=== PATIENT | female | born 1990 | race Two or more races ===

== ENCOUNTER 2018-01-11 18:57 | Emergency (ER) | payer MEDICAID ==
[~2018-01-11] VITALS: Ht 162.6 cm; Wt 61.2 kg
[2018-01-11 19:20] VITALS: BP 107/67
--- NOTE | 2018-01-11 19:36 | Emergency Room Report ---
History of Present Illness General Chief Complaint: Skin Rash/Abscess Source: Patient Present Illness HPI 27-year-old female presents to the emergency department complaining of itchy rash generalized over her body that. Proximately 1 hour after eating fish and [place] yesterday afternoon. patient also reports that she is approximately 22 weeks . Pt. denies fevers, chills or swollen tender lymph nodes. Denies lesions/rashes elsewhere on the body. Denies new medications or body washes or creams. Denies swelling of the lips, tongue , throat or airway. Denies wheezing, or shortness of breath. Denies recent travel, recent illness or ill contacts. denies blisters, oral lesions, or sloughing of the skin Pt. denies pain. Pt. also requesting something for constipation. pt. states every time she takes her vitamins she becomes constipated. last BM today. denies abdominal pain, tenderness, cramping or vaginal d/c or vaginal bleeding. Allergies: Coded Allergies: No Known Allergies (Unverified , 01/11/18) Patient History Past Medical History: see triage record Past Surgical History: none Pertinent Family History: none Last Menstrual Period: 08/2017 Now: Yes Reviewed Nursing Documentation: PMH: Agreed; PSxH: Agreed Nursing Documentation-PMH Past Medical History: No Stated History Review of Systems All Other Systems: negative except mentioned in HPI Physical Exam Vital Signs Date Time Temp Pulse Resp B/P (MAP) Pulse Ox O2 Delivery O2 Flow Rate FiO2 01/11/18 19:06 97.9 89 12 107/67 98 Room Air Sp02 EP Interpretation: reviewed, normal General Appearance: no apparent distress, alert, GCS 15, non-toxic Head: normocephalic, atraumatic Eyes: bilateral eye normal inspection, bilateral eye PERRL ENT: hearing grossly normal, normal voice, other - no stridor Neck: full range of motion Respiratory: chest non-tender, lungs clear, normal breath sounds, no respiratory distress, no wheezing, speaking full sentences Cardiovascular #1: regular rate, rhythm Musculoskeletal: back normal, gait/station normal, normal range of motion, non- tender Neurologic: alert, oriented x3, responsive, motor strength/tone normal, sensory intact, speech normal, grossly normal Psychiatric: judgement/insight normal Skin: normal color, warm/dry, well hydrated, rash - generalized diffuse raised plaques, no blisters or vessicles, no crusting or sloughing of skin. thighs and UE's most prominently. some on the face and neck. Lymphatic: no adenopathy Medical Decision Making PA Attestation Dr. gomes is my supervising Physician whom patient management has been discussed with. Diagnostic Impression: Primary Impression: Urticaria ER Course 27-year-old female presents to the emergency department complaining of itchy rash generalized over her body that. Proximately 1 hour after eating fish and [place] yesterday afternoon. patient also reports that she is approximately 22 weeks . Pt. denies fevers, chills or swollen tender lymph nodes. Denies lesions/rashes elsewhere on the body. Denies new medications or body washes or creams. Denies swelling of the lips, tongue , throat or airway. Denies wheezing, or shortness of breath. Denies recent travel, recent illness or ill contacts. denies blisters, oral lesions, or sloughing of the skin Pt. denies pain. Pt. also requesting something for constipation. pt. states every time she takes her vitamins she becomes constipated. last BM today. denies abdominal pain, tenderness, cramping or vaginal d/c or vaginal bleeding. Ddx considered but are not limited to cellulitis, scabies, shingles, varicella, dermatitis, urticaria, eczema, tinea, viral exanthem, SJS, scombroid Vital signs: are WNL, pt. is afebrile H&PE are most consistent with urticaria without evidence to suspect angioedema, acute airway compromise/impending airway compromise or anaphylaxis ORDERS: none required at this time, the diagnosis is clinical ED INTERVENTIONS: 50 mg Benadryl PO DISCHARGE: At this time pt. is stable for d/c to home. Will provide printed patient care instructions, and any necessary prescriptions. Care plan and follow up instructions have been discussed with the patient prior to discharge. Last Vital Signs Date Time Temp Pulse Resp B/P (MAP) Pulse Ox O2 Delivery O2 Flow Rate FiO2 01/11/18 19:20 97.9 89 12 107/67 98 Room Air Disposition: HOME, SELF-CARE Condition: Stable Scripts Docusate Sodium* (COLACE*) 100 Mg Capsule 100 MG ORAL TWICE A DAY, #30 CAP Prov: Mayuri Delatorre 01/11/18 Diphenhydramine Hcl/Zinc Acet (BENADRYL ITCH STOPPING CRM) 28.3 Gm Cream..g. 1 APPLIC TP Q6HR, #28.3 GM Prov: Mayuri Delatorre 01/11/18 Diphenhydramine Hcl (BENADRYL ALLERGY) 25 Mg Tablet 50 MG PO Q6HR, #20 TAB Prov: Mayuri Delatorre 01/11/18 Referrals: [facility],REFERRING (PCP) Patient Instructions: Rash Additional Instructions: Take medications as directed. Follow up with a OBGYN within 3 days, even if your symptoms have resolved. Return sooner to ED if new symptoms occur, or current symptoms become worse. - Please note that this Emergency Department Report was dictated using [employer] rep technology software, occasionally this can lead to erroneous entry secondary to interpretation by the dictation equipment. Mayuri Delatorre Jan 11, 2018 19:36
[2018-01-11] MEDS ORDERED: BENADRYL ALLERG25 M1 PO (19:38)
[2018-01-11] MEDS ORDERED: COLACE100 MG ORAL (19:38)
[2018-01-11] MEDS ORDERED: BENADRYL ITCH28.3 GM TP (19:38)
[2018-01-11 19:47] VITALS: BP 107/67
== END 2018-01-11 19:45 | disposition home or self-care (01) ==
LOC: EMR 19:27
DX: O26.892 Other specified pregnancy related conditions, second trimester (principal); L50.0 Allergic urticaria; Z3A.22 22 weeks gestation of pregnancy
CPT/HCPCS: 99282

== ENCOUNTER 2018-05-31 19:51 | Emergency (ER) | payer MEDICAID ==
[~2018-05-31] VITALS: Ht 165.1 cm; Wt 68.0 kg
[~2018-05-31 19:51] MED LIST: BENADRYL ALLERG25 M1 PO; BENADRYL ITCH28.3 GM TP; COLACE100 MG ORAL
--- NOTE | 2018-05-31 20:12 | NUR ---
ED Nurse Note: Martine walked into ED c/o flu like symptoms, states that shes been experiencing a cold now for the past 10 days, at time of triage, patients temp was 98.8. patient is actively coughing however with no sputum. patient is alert and oriented x4, ambulatory with a steady gait, VSS
[2018-05-31 20:15] VITALS: BP 142/85
[2018-05-31 21:43] LABS: BASOPHILS % (AUTO) 0.4 % (0.0-2.0); EOSINOPHILS % (AUTO) 0.7 % (0.0-3.0); HEMATOCRIT 27.8 % (37.0-47.0); HEMOGLOBIN 8.8 G/DL (12.0-16.0); LYMPHOCYTES % (AUTO) 15.3 % (20.0-45.0); MEAN CORPUSCULAR VOLUME 80 FL (80-99); MONOCYTES % (AUTO) 5.8 % (1.0-10.0); NEUTROPHILS % (AUTO) 77.7 % (45.0-75.0); PLATELET COUNT 241 K/UL (150-450); RED BLOOD COUNT 3.49 M/UL (4.20-5.40); RED CELL DISTRIBUTION WIDTH 13.5 % (11.6-14.8); WHITE BLOOD COUNT 14.3 K/UL (4.8-10.8)
[2018-05-31 21:55] LABS: ANION GAP 9 mmol/L (5-15); BLOOD UREA NITROGEN 13 mg/dL (7-18); CALCIUM 8.6 MG/DL (8.5-10.1); CARBON DIOXIDE 24 MMOL/L (21-32); CHLORIDE 107 MMOL/L (98-107); CREATININE 0.8 MG/DL (0.55-1.30); POTASSIUM 4.1 MMOL/L (3.5-5.1); SODIUM 140 MMOL/L (136-145)
[2018-05-31 22:00] LABS: ALANINE AMINOTRANSFERASE 37 U/L (12-78); ALBUMIN 2.3 G/DL (3.4-5.0); ALBUMIN/GLOBULIN RATIO 0.5 (1.0-2.7); ALKALINE PHOSPHATASE 152 U/L (46-116); ASPARTATE AMINO TRANSFERASE 39 U/L (15-37); BILIRUBIN,TOTAL 0.3 MG/DL (0.2-1.0)
--- NOTE | 2018-05-31 22:06 | Emergency Room Report ---
History of Present Illness General Chief Complaint: Flu Like Symptoms Source: Patient Present Illness HPI The patient states that she delivered by vaginal delivery yesterday. She states for the past 3 weeks she has had a persistent cough. She has had some light vaginal bleeding. However she states it has not been heavy. She denies abdominal pain. She has had swollen legs it. She denies headache. She denies shortness of breath. She has no other complaints. Allergies: Coded Allergies: No Known Allergies (Unverified , 01/11/18) Patient History Past Medical History: none Social History: Denies: smoking, alcohol use, drug use Last Menstrual Period: UNK Now: No Reviewed Nursing Documentation: PMH: Agreed; PSxH: Agreed Nursing Documentation-PMH Past Medical History: No Stated History Review of Systems All Other Systems: negative except mentioned in HPI Physical Exam Vital Signs Date Time Temp Pulse Resp B/P (MAP) Pulse Ox O2 Delivery O2 Flow Rate FiO2 05/31/18 20:12 98.8 73 18 147/88 98 Room Air Sp02 EP Interpretation: reviewed, normal General Appearance: no apparent distress, alert, GCS 15, non-toxic Head: normocephalic, atraumatic Eyes: bilateral eye PERRL, bilateral eye other - pale conjunctiva ENT: hearing grossly normal, normal pharynx, no angioedema, normal voice Neck: full range of motion, supple/symm/no masses Respiratory: chest non-tender, lungs clear, normal breath sounds, no respiratory distress, no retraction, no accessory muscle use, speaking full sentences Cardiovascular #1: regular rate, rhythm, no edema Gastrointestinal: normal bowel sounds, soft, non-distended, no guarding, no rebound, tenderness - mild ttp diffusely over the pelvis/uterus Rectal: deferred Musculoskeletal: back normal, gait/station normal, normal range of motion, non- tender Neurologic: alert, oriented x3, responsive, motor strength/tone normal, sensory intact, speech normal Psychiatric: judgement/insight normal, memory normal, mood/affect normal, no suicidal/homicidal ideation Skin: no rash, warm/dry, well hydrated, other - Pale skin Medical Decision Making Diagnostic Impression: Primary Impression: Anemia Additional Impression: Bronchitis ER Course I was concerned that this patient was so pale and her conjunctivae was pale. Therefore, I obtained labs. The patient is anemic with a hemoglobin of 8.8. Given the patient had a vaginal delivery yesterday, and her report that she is not bleeding heavily, I did not feel that transfusion was indicated at this time. Chest x-ray showed no evidence of pneumonia. However, given the prolonged symptoms and ongoing cough, I'm going to go ahead and treat presumptively for atypical pneumonia with a Z-Adrian. Overall, the patient is nontoxic and well-appearing. She was instructed to follow-up closely with her [facility] physician to follow her anemia. She indicated understanding and intention to do so. She is given close return precautions and follow-up instructions. Laboratory Tests Test 05/31/18 21:20 White Blood Count 14.3 K/UL (4.8-10.8) H Red Blood Count 3.49 M/UL (4.20-5.40) L Hemoglobin 8.8 G/DL (12.0-16.0) L Hematocrit 27.8 % (37.0-47.0) L Mean Corpuscular Volume 80 FL (80-99) Mean Corpuscular Hemoglobin 25.1 PG (27.0-31.0) L Mean Corpuscular Hemoglobin Concent 31.6 G/DL (32.0-36.0) L Red Cell Distribution Width 13.5 % (11.6-14.8) Platelet Count 241 K/UL (150-450) Mean Platelet Volume 5.1 FL (6.5-10.1) L Neutrophils (%) (Auto) 77.7 % (45.0-75.0) H Lymphocytes (%) (Auto) 15.3 % (20.0-45.0) L Monocytes (%) (Auto) 5.8 % (1.0-10.0) Eosinophils (%) (Auto) 0.7 % (0.0-3.0) Basophils (%) (Auto) 0.4 % (0.0-2.0) Sodium Level 140 MMOL/L (136-145) Potassium Level 4.1 MMOL/L (3.5-5.1) Chloride Level 107 MMOL/L (98-107) Carbon Dioxide Level 24 MMOL/L (21-32) Anion Gap 9 mmol/L (5-15) Blood Urea Nitrogen 13 mg/dL (7-18) Creatinine 0.8 MG/DL (0.55-1.30) Estimate Glomerular Filtration Rate > 60 mL/min (>60) Glucose Level 78 MG/DL (74-106) Calcium Level 8.6 MG/DL (8.5-10.1) Total Bilirubin 0.3 MG/DL (0.2-1.0) Aspartate Amino Transferase (AST) 39 U/L (15-37) H Alanine Aminotransferase (ALT) 37 U/L (12-78) Alkaline Phosphatase 152 U/L (46-116) H Total Protein 6.6 G/DL (6.4-8.2) Albumin 2.3 G/DL (3.4-5.0) L Globulin 4.3 g/dL Albumin/Globulin Ratio 0.5 (1.0-2.7) L Last Vital Signs Date Time Temp Pulse Resp B/P (MAP) Pulse Ox O2 Delivery O2 Flow Rate FiO2 05/31/18 20:15 98.8 82 18 142/85 98 Room Air Status: improved Disposition: HOME, SELF-CARE Condition: Improved Cherry Rivas DO May 31, 2018 22:06
[2018-05-31] MEDS ORDERED: ZITHROMAX250 MG ORAL (22:07)
[2018-05-31] MEDS ORDERED: GUAIFENESIN-CO118 M1 ORAL (22:14)
[2018-05-31 22:21] VITALS: BP 135/82
--- NOTE | 2018-05-31 22:22 | NUR ---
ER DISCHARGE NOTE: Patient is cleared to be discharged per ERMD, pt is aox4, on room air, with stable vital signs. pt was given dc and prescription instructions, pt was able to verbalize understanding, pt id band and iv site removed without complications. pt is able to ambulate with steady gait. pt took all belongings.
--- NOTE | 2018-06-01 14:49 | Diagnostic Imaging Report ---
Indication: Cough Technique: One view of the chest Comparison: Findings: Lungs and pleural spaces are clear. Heart size is normal Impression: No acute process
== END 2018-05-31 22:10 | disposition home or self-care (01) ==
LOC: EMR 20:56
DX: J20.9 Acute bronchitis, unspecified (principal); D64.9 Anemia, unspecified; N93.9 Abnormal uterine and vaginal bleeding, unspecified
CPT/HCPCS: 36415; 71045; 80053; 85025; 99283